=== PATIENT | female | born 2005 | race Caucasian/White ===

== ENCOUNTER 2024-01-17 16:14 | Emergency (ER) | payer BC, MEDICAID ==
[~2024-01-17] VITALS: Ht 160 cm; Wt 49.0 kg
[2024-01-17] MEDS ORDERED: LORY1TAB2 (16:27)
[2024-01-17] MEDS ORDERED: LAMO25TA4 PO (16:27)
[2024-01-17] MEDS ORDERED: LEVE750T5 (16:27)
[2024-01-17 17:24] LABS: BASO % 0.9 % (0.0-1.0); EOS # 0.2 10^3/uL (0.0-0.5); HEMATOCRIT 38.7 % (36.0-47.0); HEMOGLOBIN 13.1 g/dl (12.0-15.5); LYMPH # 1.9 10^3/uL (1.5-5.0); LYMPH % 42.7 % (24.0-44.0); MEAN CORPUSCULAR HGB CONC 33.9 g/dl (32.0-36.5); MEAN CORPUSCULAR VOLUME 91.5 fl (80.0-96.0); MONO # 0.3 10^3/uL (0.0-0.8); MONO % 6.8 % (2.0-8.0); NEUTROPHILS % 44.9 % (36.0-66.0); PLATELET COUNT, AUTOMATED 186 10^3/uL (150-450); RED BLOOD COUNT 4.23 10^6/uL (4.00-5.40); WHITE BLOOD COUNT 4.5 10^3/uL (4.0-10.0)
[2024-01-17 17:30] LABS: ERYTHROCYTE SEDIMENTATION RATE 5 mm/hr (0-20)
[2024-01-17 17:37] LABS: LIPASE 41 U/L (12-53)
[2024-01-17 17:38] LABS: C REACTIVE PROTEIN QUANTITATIV < 0.40 MG/DL (<1.0)
[2024-01-17 17:39] LABS: ALBUMIN 4.1 G/DL (3.2-5.2); ALKALINE PHOSPHATASE 62 U/L (46-116); ALT/SGPT 11 U/L (7.0-40); AST/SGOT 16 U/L (<34); BILIRUBIN,DIRECT 0.2 MG/DL (<0.4); BILIRUBIN,TOTAL 0.5 MG/DL (0.3-1.2); CK-MB VALUE MASS < 1.0 NG/ML (<3.6); CPK CREATINE PHOSPHOKINASE 60 U/L (34-145); MAGNESIUM LEVEL 1.9 MG/DL (1.8-2.4); MB/CK RELATIVE INDEX 1.66 (< OR =4); TOTAL PROTEIN 7.2 G/DL (5.7-8.2)
[2024-01-17 18:26] LABS: THYROID STIMULATING HORMONE 2.442 uIU/ML (0.48-4.17)
[2024-01-17 19:49] VITALS: BP 104/53; TEMP 98.1; O2SAT 100
[2024-01-17] MEDS: IBUPROFEN 600MG TAB PO ONE (19:49)
== END 2024-01-17 19:51 | disposition home or self-care (01) ==
LOC: M ED 16:14
DX: G43.909 Migraine, unspecified, not intractable, without status migrainosus (principal); A09 Infectious gastroenteritis and colitis, unspecified; K21.9 Gastro-esophageal reflux disease without esophagitis

== ENCOUNTER 2025-03-01 19:10 | Emergency (ER) | payer BC, MEDICAID, OTHER ==
[~2025-03-01] VITALS: Ht 160 cm; Wt 57.7 kg
[~2025-03-01 19:10] MED LIST: LAMO25TA4 PO; LEVE750T5; LORY1TAB2
[2025-03-01 20:05] LABS: KETONE, URINE AUTO RFX NEGATIVE (NEGATIVE); LEUKOCYTE ESTERASE UR AUTO RFX NEGATIVE (NEGATIVE); MUCUS, URINE RFX SMALL (NEGATIVE); NITRITE, URINE AUTO RFX NEGATIVE (NEGATIVE); RBC, URINE AUTO RFX 0 /HPF (0-3); SQUAM EPITHELIAL CELL UR AURFX 2 /HPF (0-6); WBC, URINE AUTO RFX 1 /HPF (0-3)
[2025-03-01 20:14] LABS: BASO % 0.7 % (0.0-1.0); EOS # 0.1 10^3/uL (0.0-0.5); EOS % 2.3 % (0.0-3.0); HEMATOCRIT 37.7 % (36.0-47.0); HEMOGLOBIN 12.5 g/dl (12.0-15.5); LYMPH # 2.8 10^3/uL (1.5-5.0); LYMPH % 46.1 % (24.0-44.0); MEAN CORPUSCULAR HEMOGLOBIN 28.7 pg (27.0-33.0); MEAN CORPUSCULAR HGB CONC 33.2 g/dl (32.0-36.5); MEAN CORPUSCULAR VOLUME 86.5 fl (80.0-96.0); MONO # 0.5 10^3/uL (0.0-0.8); MONO % 8.7 % (2.0-8.0); NEUTROPHILS # 2.5 10^3/uL (1.5-8.5); NEUTROPHILS % 41.9 % (36.0-66.0); PLATELET COUNT, AUTOMATED 161 10^3/uL (150-450); RED BLOOD COUNT 4.36 10^6/uL (4.00-5.40)
[2025-03-01 20:34] LABS: LIPASE 62 U/L (12-53)
[2025-03-01 20:36] LABS: ALBUMIN 3.6 G/DL (3.2-5.2); ALKALINE PHOSPHATASE 112 U/L (35-104); ALT/SGPT 30 U/L (7.0-40); AST/SGOT 32 U/L (<34); BILIRUBIN,DIRECT 0.1 MG/DL (<0.4); BILIRUBIN,TOTAL 0.4 MG/DL (0.3-1.2); BLOOD UREA NITROGEN 11 MG/DL (9-23); CALCIUM LEVEL 8.9 MG/DL (8.5-10.1); CARBON DIOXIDE LEVEL 29 MMOL/L (20-31); CHLORIDE LEVEL 107 MMOL/L (98-107); CREATININE FOR GFR 0.79 MG/DL (0.55-1.30); GLOMERULAR FILTRATION RATE > 90.0 (>60); GLUCOSE, FASTING 89 MG/DL (60-100); POTASSIUM SERUM 3.5 MMOL/L (3.5-5.1); SODIUM LEVEL 143 MMOL/L (136-145); TOTAL PROTEIN 7.2 G/DL (5.7-8.2)
[2025-03-01 20:39] LABS: HCG, SERUM QUALITATIVE NEGATIVE (NEGATIVE)
[2025-03-01 23:03] VITALS: TEMP 97.3
[2025-03-02] MEDS: IBUPROFEN 600MG TAB PO ONE (02:54)
[2025-03-02 02:57] VITALS: BP 103/64; O2SAT 100
== END 2025-03-02 03:44 | disposition home or self-care (01) ==
LOC: M ED 19:10
DX: N92.0 Excessive and frequent menstruation with regular cycle (principal); Z79.899 Other long term (current) drug therapy

== ENCOUNTER → 2025-05-06 | Outpatient (CLI) | payer OTHER ==
[~2025-05-06] MED LIST changes: +LAMO-18 PO; -LAMO25TA4 PO
[2025-05-06 13:46] LABS: INR 0.93
[2025-05-06 13:53] LABS: IRON (FE) 113.0 UG/DL (50-170)
== END ==
LOC: M RAD 12:15
PROVIDERS: ATTEND Physician Assistant Medical
DX: R10.2 Pelvic and perineal pain (principal)